=== PATIENT | male | born 1990 | race Two or more races ===

== ENCOUNTER 2017-05-12 06:32 | Day surgery (SDC) | payer BC ==
[2017-05-12] VITALS (8 sets, daily range): BP systolic 89–115; BP diastolic 55–74
[~2017-05-12] VITALS: Ht 167.6 cm; Wt 70.3 kg
[2017-05-12] MEDS ORDERED: LR 1000ml ONE (07:00)
[2017-05-12] MEDS ORDERED: LR 1000ml 1,000 ML IVLG SCH ×2 (07:00→07:31)
[2017-05-12] MEDS ORDERED: Propofol 200mg/20ml IV ONE (07:00)
--- NOTE | 2017-05-12 07:21 | Short Stay Surgery H&P ---
History of Present Illness History of Present Illness Chief Complaint See attached H&P HPI Goran Melo is a 26 year old male who was admitted on for Blood In Stool Patient History Allergies: Coded Allergies: No Known Allergies (Unverified , 05/09/17) PAST MEDICAL HISTORY: Past Surgeries: Social History: Physical Exam Vital Signs Last Vital Signs Date Time Temp Pulse Resp B/P (MAP) Pulse Ox O2 Delivery O2 Flow Rate FiO2 05/12/17 07:03 97.5 76 18 103/71 100 Room Air 97.5 Plan Attestation Are the patient's medical conditions optimized for surgery? ADAM SOTO May 12, 2017 07:21
--- NOTE | 2017-05-12 07:22 | Anethesia Preoperative Eval ---
Anesthesia Pre-op PMH/ROS General Date of Evaluation: May 12, 2017 Time of Evaluation: 07:15 Anesthesiologist: Mary ASA Score: ASA 2 Mallampati Score Class I : Soft palate, uvula, fauces, pillars visible Class II: Soft palate, uvula, fauces visible Class III: Soft palate, base of uvula visible Class IV: Only hard plate visible Mallampati Classification: Class II Surgeon: Chris Diagnosis: Hemataochezia Surgical Procedure: Colonoxcopy Anesthesia History: none Family History: no anesthesia problems Allergies: Coded Allergies: No Known Allergies (Unverified , 05/09/17) Medications: see eMAR Past Medical History Cardiovascular: Denies: HTN, CAD, VT, valve dz, arrhythmia, other Pulmonary: Denies: asthma, COPD, WILMAN, other Gastrointestinal/Genitourinary: Denies: GERD, CRI, ESRD, other Neurologic/Psychiatric: Denies: dementia, CVA, depression/anxiety, TIA, other Endocrine: Denies: DM, hypothyroidism, steroids, other HEENT: Denies: cataract (L), cataract (R), glaucoma, [place] (L), [place] (R), other Hematology/Immune: Reports: anemia, Denies: DVT, bleeding disorder, other Musculoskeletal/Integumentary: Denies: OA, RA, DJD, DDD, edema, other PMH Narrative: Hematochezia, anemia PSxH Narrative: Denies Anesthesia Pre-op Phys. Exam Physician Exam Last Vital Signs Date Time Temp Pulse Resp B/P (MAP) Pulse Ox O2 Delivery O2 Flow Rate FiO2 05/12/17 07:03 97.5 76 18 103/71 100 Room Air 97.5 Constitutional: NAD Neurologic: CN 2-12 intact Cardiovascular: RRR, no M/R/G Respiratory: CTA Gastrointestinal: S/NT/ND Airway Exam Mallampati Score: Class II MO: full ROM: full Teeth: intact Anesthesia Pre-op A/P Risk Assessment & Plan Assessment: Anemia, hematochezia Plan: GA Status Change Before Surgery: No Pre-Antibiotics Drug: None SARY MORALES M.D. May 12, 2017 07:22
--- NOTE | 2017-05-12 07:22 | Pre-Procedure Note/Attestation ---
Pre-Procedure Note/Attestation Complete Prior to Procedure Planned Procedure: not applicable Procedure Narrative: colon Indications for Procedure Pre-Operative Diagnosis: hematochezia Attestation I attest that I discussed the nature of the procedure; its benefits; risks and complications; and alternatives (and the risks and benefits of such alternatives ), prior to the procedure, with the patient (or the patient's legal retail sales representative). I attest that, if there was a reasonable possibility of needing a blood transfusion, the patient (or the patient's legal retail sales representative) was given the [facility] standardized written summary, pursuant to the Gonzalo Maria Elena Blood Safety Act ([place] Health and Safety Code # 1645, as amended). I attest that I re-evaluated the patient just prior to the surgery and that there has been no change in the patient's H&P, except as documented below: ADAM SOTO May 12, 2017 07:22
[2017-05-12] MEDS ORDERED: NKM (07:27)
--- NOTE | 2017-05-12 07:31 | Immediate Post-Op Evaluation ---
Immediate Post-Op Evalulation Immediate Post-Op Evalulation Procedure: Colonoscopy Date of Evaluation: May 12, 2017 Time of Evaluation: 08:05 IV Fluids: 600 Blood Pressure Systolic: 106 Blood Pressure Diastolic: 59 Pulse Rate: 68 Respiratory Rate: 17 O2 Sat by Pulse Oximetry: 100 Temperature (Fahrenheit): 97.0 Pain Score (1-10): 0 Nausea: No Vomiting: No Complications No complication Patient Status: awake, patent, none Hydration Status: adequate Drug: None SARY MORALES M.D. May 12, 2017 07:31
[2017-05-12] MEDS ORDERED: fentaNYL 100 mcg/2 mL IV PRN (07:45)
[2017-05-12] MEDS ORDERED: LR 1000ml 1,000 ML IV SCH (07:45)
--- NOTE | 2017-05-12 08:05 | Endoscopy Procedure Note ---
Endoscopy Procedure Note General Indication for Procedure: BRB, h/o abd pain Procedures Performed: colonoscopy Operative Findings/Diagnosis: prolapse rhoid, dim distal rectal polyp Specimen: yes Pt Tolerated Procedure Well: Yes Estimated Blood Loss: none Anesthesia Anesthesiologist: see report Anesthesia: MAC Medications Medication Given: see anesthesia record Inserted Devices Implant(s) used?: No GI Core Measures 50 yrs or older w/o bx or poly: Not Applicable 10yrs. F/U not recommended: Not Applicable If not recommended, why?: ADAM SOTO May 12, 2017 08:05
--- NOTE | 2017-05-12 08:06 | Brief Operative Note ---
Immediate Post Operative Note Operative Note Chief Complaint: BRB Pre-op Diagnosis: hematochezia Procedure: Colon, bx Post-op Diagnosis: prolapse rhoid, dim distal rectal polyp Surgeon: oscar Anesthesia: MAC Specimen: yes Complications: none Condition: stable Fluids: recorded Estimated Blood Loss: none Drains: none Implant(s) used?: No ADAM SOTO May 12, 2017 08:06
--- NOTE | 2017-05-12 08:53 | 48 Hour Post Anesthesia Eval ---
Post Anesthesia Evaluation Procedure: Colonoscopy Date of Evaluation: May 12, 2017 Time of Evaluation: 08:35 Blood Pressure Systolic: 112 0: 68 Pulse Rate: 68 Respiratory Rate: 15 O2 Sat by Pulse Oximetry: 100 Airway: patent Nausea: No Vomiting: No Pain Intensity: 0 Hydration Status: adequate Cardiopulmonary Status: Stable Mental Status/LOC: patient returned to baseline Follow-up Care/Observations: As per surgery Post-Anesthesia Complications: No anesthetic complication Follow-up care needed: N/A SARY MORALES M.D. May 12, 2017 08:52
--- NOTE | 2017-05-12 19:45 | Procedure Note ---
DATE OF PROCEDURE: 05/12/2017 GASTROENTEROLOGY PROCEDURE REPORT PROCEDURE: Colonoscopy with biopsy. SURGEON: Ze Perez M.D. ANESTHESIA: Please see the separate anesthesiologist notes for details. PRE-ENDOSCOPIC DIAGNOSIS: Hematochezia. POST-ENDOSCOPIC DIAGNOSES: 1. Prolapsed external hemorrhoids. 2. Diminutive distal rectal polyp, status post biopsy. DESCRIPTION OF PROCEDURE: The procedure, its risks, indications, alternatives, and possible complications including, but not limited to bleeding, infection, perforation, , and anesthesia complications were explained to the patient and informed consent was obtained. Rectal exam was done, which showed a prolapsed external hemorrhoid. The colonoscope was introduced in the rectum and advanced to the terminal ileum. The terminal ileal mucosa was normal and was biopsied. Random biopsies of the normal right colon, left colon, and rectosigmoid colon were sent to pathology for review. There were no other abnormalities to suggest polyps or cancers or inflammatory bowel disease. In the very distal rectum, there was a diminutive polyp versus fold, which was removed with the biopsy forceps. The colonoscope was removed, and the patient was sent to recovery in good condition. COMPLICATIONS: None. RECOMMENDATIONS: 1. Follow up biopsy results. 2. Bowel regimen. 3. Outpatient followup. Ze Perez M.D. DR: GABE JOB#: [id number] CC:
== END 2017-05-12 09:15 | disposition home or self-care (01) ==
LOC: GAS 06:32
DX: K64.8 Other hemorrhoids (principal); K62.1 Rectal polyp
CPT/HCPCS: 45380; J2704; J7120; 94003; 94150